=== PATIENT | female | born 1945 | race Caucasian/White ===

== ENCOUNTER 2020-05-05 11:13 | Inpatient (IN) ==
[2020-05-05] MEDS ORDERED: Oxymetazoline Nasal SPRAY BOTTLE NS STA (11:28)
[2020-05-05 11:42] LABS: Basophils % 0.6 %; Eosinophils % 0.3 %; Hematocrit 34.2 % (35.3-44.9); Hemoglobin 10.4 g/dL (11.5-15.4); Immature Granulocytes % 0.6 % (0-4); Lymphocytes # 0.9 K/mcL (0.6-4.6); Lymphocytes % 27.7 %; Mean Corpuscular HGB Conc 30.4 g/dL (31.6-35.5); Mean Corpuscular Hemoglobin 28.3 pg (28.0-33.3); Mean Corpuscular Volume 92.9 fL (83.0-100.0); Mean Platelet Volume 9.5 fL (9.4-12.4); Monocytes # 0.3 K/mcL (0.0-1.3); Monocytes % 8.3 %; Platelet Count 212 K/mcL (140-400); Red Blood Count 3.68 M/mcL (3.82-4.97); Red Cell Distribution Width 13.4 % (11.5-14.5); Segmented Neutrophils % 62.5 %; White Blood Count 3.1 K/mcL (4.3-11.1)
[2020-05-05 11:43] LABS: Neutrophils # 1.9 K/mcL (1.6-8.9)
[2020-05-05 11:48] LABS: INR 3.4; Prothrombin Time 37.9 Seconds (9.4-12.1)
[2020-05-05 11:50] LABS: Activated Partial Thrombo Time 32.2 Seconds (26.0-36.0)
[2020-05-05 11:58] LABS: Platelet Estimate Normal (Normal)
[2020-05-05 12:05] LABS: Albumin 3.3 g/dL (3.5-5.7); Albumin/Globulin Ratio 0.8 (1.1-2.2); Bilirubin,Direct 0.1 mg/dL (0.0-0.2); Bilirubin,Indirect 0.3 mg/dL (0.0-1.0); Bilirubin,Total 0.4 mg/dL (0.3-1.0); Calcium 9.6 mg/dL (8.6-10.3); Globulin 4.2 g/dL (2.4-3.5); Magnesium 1.5 mg/dL (1.6-2.6); Phosphorous 1.9 mg/dL (2.7-4.5); Potassium 3.3 mEq/L (3.5-5.1); Total Protein 7.5 g/dL (6.4-8.9); Troponin I 0.03 ng/mL (< 0.04)
[2020-05-05] MEDS ORDERED: Dexamethasone 4 MG/ML VIAL IVP ONE (12:21)
[2020-05-05] MEDS ORDERED: Azithromycin 500 MG in 0.9 % Sodium Chloride 250 ML IVPB ONE (12:21)
[2020-05-05 13:13] LABS: Adenovirus Not Detected (Not Detect); Bordetella Pertussis Not Detected (Not Detect); Chlamydophila pneumoniae Not Detected (Not Detect); Coronavirus 229E Not Detected (Not Detect); Coronavirus HKU1 Not Detected (Not Detect); Coronavirus NL63 Not Detected (Not Detect); Coronavirus OC43 Not Detected (Not Detect); Human Metapneumovirus Not Detected (Not Detect); Human Rhinovirus/Enterovirus Not Detected (Not Detect); Influenza A Subtype 2009 H1 Not Detected (Not Detect); Influenza B Not Detected (Not Detect); Mycoplasma pneumoniae Not Detected (Not Detect); Parainfluenza Virus 1 Not Detected (Not Detect); Parainfluenza Virus 2 Not Detected (Not Detect); Parainfluenza Virus 3 Not Detected (Not Detect); Parainfluenza Virus 4 Not Detected (Not Detect); Respiratory Syncytial Virus Not Detected (Not Detect)
[2020-05-05 13:16] LABS: SARS-CoV-2 DETECTED (Not Detect)
[2020-05-05] MEDS ORDERED: Naloxone 0.4 MG/ML INJ IVP PRN (15:15)
[2020-05-05] MEDS ORDERED: Mag Hydrox/Al Hydrox/Simeth 30 ML UDC PO PRN (15:15)
[2020-05-05] MEDS ORDERED: Ondansetron ODT 4 MG TAB.RAPDIS SL PRN (15:15)
[2020-05-05] MEDS ORDERED: *HR* Dextrose 50 % in Water (Vial) 50 ML VIAL IVP PRN (15:24)
[2020-05-05] MEDS ORDERED: D5% in Water 1,000 ML IVC PRN (15:24)
[2020-05-05] MEDS ORDERED: Dextrose Gel 15 GM/37.5 ML TUBE PO PRN ×2 (15:24)
[2020-05-05 16:13] LABS: ABG Base Excess 1 mEq/L (-2 to 3); ABG HCO3 28 mEq/L (21-27); ABG Oxygen Saturation 92 % (95-98); ABG PCO2 53 mmHg (35-45); ABG PH 7.33 pH Units (7.32-7.45); ABG PO2 71 mmHg (85-104); ABG TCO2 30 mEq/L (20-26)
[2020-05-05] MEDS: Ipratropium 1 PUFF INHALER IH SCH ×3 (16:52→23:52)
[2020-05-05] MEDS ORDERED: Warfarin perPT PO PRN (18:00)
[2020-05-05] MEDS: Insulin LISPRO 300 UNITS/3 ML VIAL SQ SCH ×2 (18:03→20:45)
[2020-05-05] MEDS: Azithromycin 500 MG in 0.9 % Sodium Chloride 250 ML IVPB SCH (19:07)
[2020-05-05] MEDS: cefTRIAXone 1,000 MG in Water for inj. (sterile) 10 ML IVP SCH (19:12)
[2020-05-06] MEDS: Ipratropium 1 PUFF INHALER IH SCH ×5 (03:47→20:18)
[2020-05-06] MEDS ORDERED: Melatonin 3 MG TABLET PO ONE (04:05)
[2020-05-06 09:09] LABS: Hematocrit 31.1 % (35.3-44.9); Hemoglobin 9.4 g/dL (11.5-15.4); Mean Corpuscular HGB Conc 30.2 g/dL (31.6-35.5); Mean Corpuscular Hemoglobin 28.1 pg (28.0-33.3); Mean Corpuscular Volume 93.1 fL (83.0-100.0); Mean Platelet Volume 9.7 fL (9.4-12.4); Monocytes # 0.2 K/mcL (0.0-1.3); Platelet Count 247 K/mcL (140-400); Red Blood Count 3.34 M/mcL (3.82-4.97); Red Cell Distribution Width 13.3 % (11.5-14.5); White Blood Count 2.9 K/mcL (4.3-11.1)
[2020-05-06 09:17] LABS: INR 3.3
[2020-05-06 09:30] LABS: Alanine Aminotransferase 8 Units/L (7-52); Albumin 3.1 g/dL (3.5-5.7); Albumin/Globulin Ratio 0.8 (1.1-2.2); Alkaline Phosphatase 58 Units/L (34-104); Aspartate Amino Transferase 13 Units/L (13-39); BUN/Creatinine Ratio 26 (6-26); Bilirubin,Total 0.3 mg/dL (0.3-1.0); Blood Urea Nitrogen 23 mg/dL (8-23); Calcium 9.8 mg/dL (8.6-10.3); Carbon Dioxide 28 mEq/L (23-29); Chloride 106 mEq/L (98-107); Globulin 3.9 g/dL (2.4-3.5); Glucose 155 mg/dL (70-105); Magnesium 1.8 mg/dL (1.6-2.6); Osmolality,Calculated 297 (280-300); Potassium 3.7 mEq/L (3.5-5.1); Sodium 140 mEq/L (136-145); eGFR For African Americans > 60 (> 60); eGFR For Non-African Americans > 60 (> 60)
[2020-05-06 09:51] LABS: Lymphocytes # 0.8 K/mcL (0.6-4.6); Neutrophils # 1.9 K/mcL (1.6-8.9); Platelet Estimate Normal (Normal); Reactive Lymphocytes Present (Not Present)
[2020-05-06] MEDS: Insulin LISPRO 300 UNITS/3 ML VIAL SQ SCH ×4 (10:18→21:01)
[2020-05-06] MEDS: Dexamethasone 4 MG/ML VIAL IVP SCH (10:39)
[2020-05-06] MEDS: cefTRIAXone 1,000 MG in Water for inj. (sterile) 10 ML IVP SCH (10:40)
[2020-05-06 11:21] LABS: Hematocrit 31.2 % (35.3-44.9); Hemoglobin 9.6 g/dL (11.5-15.4)
[2020-05-06] MEDS ORDERED: Potassium Phosphate 44 MEQ in 0.9 % Sodium Chloride 250 ML IVPB ONE (12:17)
[2020-05-06 12:25] LABS: ABG Base Excess 4 mEq/L (-2 to 3); ABG HCO3 30 mEq/L (21-27); ABG Oxygen Saturation 93 % (95-98); ABG PCO2 50 mmHg (35-45); ABG PH 7.39 pH Units (7.32-7.45); ABG PO2 67 mmHg (85-104); ABG TCO2 32 mEq/L (20-26)
[2020-05-06] MEDS ORDERED: Furosemide 20 MG TABLET PO PRN (13:06)
[2020-05-06] MEDS ORDERED: *HR* HYDROcodone/Acet 5/325 mg TABLET PO PRN (13:06)
[2020-05-06] MEDS ORDERED: 0.9 % Sodium Chloride 250 ML IVC SCH (13:15)
[2020-05-06] MEDS ORDERED: *HR* Metoprolol 5 MG/5 ML VIAL IVP ONE (15:20)
[2020-05-06] MEDS: Azithromycin 500 MG in 0.9 % Sodium Chloride 250 ML IVPB SCH (16:32)
[2020-05-06] MEDS: Carbidopa/Levodopa ER 50/200 TABLET PO SCH (20:20)
[2020-05-06] MEDS: Cholecalciferol (D-3) 1,000 UNIT (25MCG) TABLET PO SCH (20:20)
[2020-05-07] MEDS: Ipratropium 1 PUFF INHALER IH SCH ×7 (00:05→23:57)
[2020-05-07 07:01] LABS: INR 3.3; Prothrombin Time 36.9 Seconds (9.4-12.1)
[2020-05-07 07:02] LABS: Hematocrit 30.1 % (35.3-44.9); Mean Corpuscular HGB Conc 29.9 g/dL (31.6-35.5); Mean Corpuscular Hemoglobin 28.6 pg (28.0-33.3); Mean Corpuscular Volume 95.6 fL (83.0-100.0); Mean Platelet Volume 9.6 fL (9.4-12.4); Monocytes # 0.3 K/mcL (0.0-1.3); Platelet Count 304 K/mcL (140-400); Red Blood Count 3.15 M/mcL (3.82-4.97); Red Cell Distribution Width 13.4 % (11.5-14.5); White Blood Count 3.6 K/mcL (4.3-11.1)
[2020-05-07 07:17] LABS: Alanine Aminotransferase < 3 Units/L (7-52); Albumin 3.1 g/dL (3.5-5.7); Albumin/Globulin Ratio 0.8 (1.1-2.2); Alkaline Phosphatase 53 Units/L (34-104); Aspartate Amino Transferase 13 Units/L (13-39); BUN/Creatinine Ratio 27 (6-26); Bilirubin,Total 0.3 mg/dL (0.3-1.0); Blood Urea Nitrogen 22 mg/dL (8-23); Calcium 10.3 mg/dL (8.6-10.3); Carbon Dioxide 30 mEq/L (23-29); Chloride 107 mEq/L (98-107); Globulin 3.8 g/dL (2.4-3.5); Glucose 135 mg/dL (70-105); Osmolality,Calculated 297 (280-300); Potassium 4.2 mEq/L (3.5-5.1); Sodium 141 mEq/L (136-145); Total Protein 6.9 g/dL (6.4-8.9); eGFR For African Americans > 60 (> 60); eGFR For Non-African Americans > 60 (> 60)
[2020-05-07] MEDS: Insulin LISPRO 300 UNITS/3 ML VIAL SQ SCH ×4 (08:17→20:02)
[2020-05-07 08:34] LABS: Lymphocytes # 0.7 K/mcL (0.6-4.6); Neutrophils # 2.7 K/mcL (1.6-8.9); Platelet Estimate Normal (Normal); Reactive Lymphocytes Present (Not Present)
[2020-05-07] MEDS: Magnesium Oxide 400 MG TABLET PO SCH (08:34)
[2020-05-07] MEDS: Cholecalciferol (D-3) 1,000 UNIT (25MCG) TABLET PO SCH ×2 (08:34→20:08)
[2020-05-07] MEDS: allopurinoL 300 MG TABLET PO SCH (08:34)
[2020-05-07] MEDS: Carbidopa/Levodopa ER 50/200 TABLET PO SCH ×2 (08:34→20:08)
[2020-05-07] MEDS: Dexamethasone 4 MG/ML VIAL IVP SCH (10:24)
[2020-05-07] MEDS: cefTRIAXone 1,000 MG in Water for inj. (sterile) 10 ML IVP SCH (11:00)
[2020-05-07 12:53] LABS: Hematocrit 31.8 % (35.3-44.9); Hemoglobin 9.5 g/dL (11.5-15.4)
[2020-05-07] MEDS: Saline Nasal Spray 44 ML BOTTLE NS SCH ×2 (14:10→20:08)
[2020-05-07] MEDS ORDERED: Azithromycin 250 MG TABLET PO SCH (16:00)
[2020-05-07] MEDS ORDERED: Warfarin perPT PO PRN (18:00)
[2020-05-08] MEDS: Ipratropium 1 PUFF INHALER IH SCH ×3 (03:22→10:56)
[2020-05-08 05:32] LABS: Basophils % 0.2 %; Hemoglobin 9.4 g/dL (11.5-15.4); Immature Granulocytes % 1.1 % (0-4); Lymphocytes # 1.3 K/mcL (0.6-4.6); Lymphocytes % 24.9 %; Mean Corpuscular HGB Conc 30.3 g/dL (31.6-35.5); Mean Corpuscular Hemoglobin 28.2 pg (28.0-33.3); Mean Corpuscular Volume 93.1 fL (83.0-100.0); Mean Platelet Volume 9.5 fL (9.4-12.4); Monocytes # 0.4 K/mcL (0.0-1.3); Monocytes % 7.3 %; Neutrophils # 3.5 K/mcL (1.6-8.9); Platelet Count 354 K/mcL (140-400); Red Blood Count 3.33 M/mcL (3.82-4.97); Red Cell Distribution Width 13.4 % (11.5-14.5); Segmented Neutrophils % 66.5 %; White Blood Count 5.2 K/mcL (4.3-11.1)
[2020-05-08 05:38] LABS: INR 3.1; Prothrombin Time 34.8 Seconds (9.4-12.1)
[2020-05-08 05:53] LABS: Alanine Aminotransferase < 3 Units/L (7-52); Albumin 3.1 g/dL (3.5-5.7); Albumin/Globulin Ratio 0.8 (1.1-2.2); Alkaline Phosphatase 55 Units/L (34-104); Aspartate Amino Transferase 13 Units/L (13-39); BUN/Creatinine Ratio 29 (6-26); Bilirubin,Total 0.4 mg/dL (0.3-1.0); Blood Urea Nitrogen 24 mg/dL (8-23); Calcium 10.2 mg/dL (8.6-10.3); Carbon Dioxide 31 mEq/L (23-29); Chloride 105 mEq/L (98-107); Glucose 127 mg/dL (70-105); Osmolality,Calculated 296 (280-300); Potassium 3.9 mEq/L (3.5-5.1); Sodium 140 mEq/L (136-145); Total Protein 7.1 g/dL (6.4-8.9); eGFR For African Americans > 60 (> 60); eGFR For Non-African Americans > 60 (> 60)
[2020-05-08 07:03] LABS: Platelet Estimate Normal (Normal)
[2020-05-08] MEDS: Insulin LISPRO 300 UNITS/3 ML VIAL SQ SCH ×2 (09:04→12:43)
[2020-05-08] MEDS: Carbidopa/Levodopa ER 50/200 TABLET PO SCH (09:12)
[2020-05-08] MEDS: Magnesium Oxide 400 MG TABLET PO SCH (09:13)
[2020-05-08] MEDS: Cholecalciferol (D-3) 1,000 UNIT (25MCG) TABLET PO SCH (09:13)
[2020-05-08] MEDS: Dexamethasone 4 MG/ML VIAL IVP SCH (09:14)
[2020-05-08] MEDS: allopurinoL 300 MG TABLET PO SCH (09:14)
[2020-05-08] MEDS: cefTRIAXone 1,000 MG in Water for inj. (sterile) 10 ML IVP SCH (09:15)
[2020-05-08] MEDS: Saline Nasal Spray 44 ML BOTTLE NS SCH (11:08)
[2020-05-08 12:12] VITALS: BP 181/92
== END 2020-05-08 14:20 | disposition home or self-care (01) | DRG 177 ==
LOC: EMEROOARM 11:13 → 2NENU 11:13 → SUATTDRO 16:00 → 2NENU 17:06
PROVIDERS: ADMIT Family Medicine; ATTEND Family Medicine

== ENCOUNTER 2021-06-26 22:19 | Inpatient (IN) ==
[2021-06-26] MEDS ORDERED: 0.9 % Sodium Chloride 1,000 ML IVC ONE (22:49)
[2021-06-27 00:52] LABS: Influenza A PCR Negative (Negative); Influenza B PCR Negative (Negative); Resp. Syncytial Virus PCR Negative (Negative)
[2021-06-27 00:53] LABS: SARS-CoV-2 by PCR (In House) Negative (Negative)
[2021-06-27] MEDS ORDERED: DilTIAZem 50 MG/50 ML IV.SOLN IVC SCH (01:00)
[2021-06-27 01:03] LABS: Basophils % 0.2 %; Hematocrit 38.2 % (35.3-44.9); Hemoglobin 11.5 g/dL (11.5-15.4); Immature Granulocytes % 0.6 % (0-4); Lymphocytes # 0.4 K/mcL (0.6-4.6); Lymphocytes % 2.3 %; Mean Corpuscular HGB Conc 30.1 g/dL (31.6-35.5); Mean Corpuscular Hemoglobin 28.2 pg (28.0-33.3); Mean Corpuscular Volume 93.6 fL (83.0-100.0); Mean Platelet Volume 9.9 fL (9.4-12.4); Monocytes # 0.6 K/mcL (0.0-1.3); Monocytes % 3.8 %; Platelet Count 210 K/mcL (140-400); Red Blood Count 4.08 M/mcL (3.82-4.97); Red Cell Distribution Width 16.9 % (11.5-14.5); Segmented Neutrophils % 93.1 %
[2021-06-27 01:13] LABS: INR 1.7; Prothrombin Time 18.8 Seconds (9.4-12.1)
[2021-06-27 01:38] LABS: Calcium 10.5 mg/dL (8.6-10.3); Potassium 3.9 mEq/L (3.5-5.1); Troponin I 0.06 ng/mL (< 0.04)
[2021-06-27] MEDS ORDERED: Isovue-370 500 ML BOTTLE IVP ONE (01:41)
[2021-06-27] MEDS ORDERED: Aspirin 325 MG TABLET PO ONE (01:41)
[2021-06-27] MEDS ORDERED: Azithromycin 500 MG in 0.9 % Sodium Chloride 250 ML IVPB ONE (01:48)
[2021-06-27] MEDS ORDERED: cefTRIAXone 1,000 MG in 0.9 % Sodium Chloride Mini Bag 100 ML IVPB ONE (01:48)
[2021-06-27] MEDS ORDERED: *HR* LORazepam 2 MG/ML VIAL IVP ONE (02:45)
[2021-06-27] MEDS ORDERED: Furosemide 20 MG/2 ML VIAL IVP ONE (04:12)
[2021-06-27] MEDS ORDERED: Melatonin 3 MG TABLET PO PRN (04:24)
[2021-06-27] MEDS ORDERED: Naloxone 0.4 MG/ML INJ IVP PRN (04:24)
[2021-06-27] MEDS ORDERED: *HR* Heparin 5,000 UNIT/ML VIAL IVP PRN ×2 (04:31)
[2021-06-27] MEDS ORDERED: Perflutren Lipid Microsphere 1.3 ML in 0.9 % Sodium Chloride 8.7 ML IVP PRN (04:34)
[2021-06-27] MEDS ORDERED: Amiodarone Premix 360 MG/200 ML BAG IVC ONE (06:20)
[2021-06-27] MEDS ORDERED: Amiodarone Premix 150 MG/100 ML BAG IVPB ONE (06:20)
[2021-06-27] MEDS: Heparin 25,000UNIT/250ML 1/2NS 25,000 UNIT/250 ML IV.SOLN IVC SCH ×2 (06:25→19:10)
[2021-06-27 07:01] LABS: Bacteria,Urine Few per hpf (None-Few); Bilirubin,Urine Negative (Negative); Blood,Urine Small (Negative); Clarity,Urine Clear (Clear); Color,Urine Light-Yellow (Yellow); Glucose,Urine (UA) 150 mg/dL (Normal); Ketones,Urine Negative (Negative); Leukocyte Esterase,Urine Negative (Negative); Nitrite,Urine Negative (Negative); Protein,Urine >=300 mg/dL (Neg-Trace); RBC,Urine 15-30 per hpf (0-3); Specific Gravity,Urine > 1.030 (1.010-1.025); Squamous Epithelial Cell,Urine Few per hpf (None-Few); Urobilinogen,Urine Normal (Normal)
[2021-06-27 09:45] LABS: Thyroid Stimulating Hormone 1.533 mcIU/mL (0.340-5.600)
[2021-06-27] MEDS: Doxycycline 100 MG in 0.9 % Sodium Chloride Mini Bag 100 ML IVPB SCH ×2 (11:35→23:06)
[2021-06-27] MEDS: Amiodarone Premix 360 MG/200 ML BAG IVC SCH (12:56)
[2021-06-27] MEDS ORDERED: *HR* HYDROcodone/Acet 5/325 mg TABLET PO PRN (13:12)
[2021-06-27] MEDS: PrednisoLONE Acetate 1% Opth 5 ML BOTTLE RIGHT EYE SCH (23:05)
[2021-06-27] MEDS: Cholecalciferol (D-3) 1,000 UNIT (25MCG) TABLET PO SCH (23:06)
[2021-06-28] MEDS: Amiodarone Premix 360 MG/200 ML BAG IVC SCH (01:22)
[2021-06-28] MEDS: Carbidopa/Levodopa ER 50/200 TABLET PO SCH ×3 (01:22→21:11)
[2021-06-28] MEDS ORDERED: Acetaminophen 325 MG TABLET PO PRN (03:51)
[2021-06-28] MEDS: cefTRIAXone 1,000 MG in 0.9 % Sodium Chloride Mini Bag 100 ML IVPB SCH (04:47)
[2021-06-28 05:24] LABS: Hematocrit 30.4 % (35.3-44.9); Mean Corpuscular HGB Conc 30.6 g/dL (31.6-35.5); Mean Corpuscular Hemoglobin 28.6 pg (28.0-33.3); Mean Corpuscular Volume 93.5 fL (83.0-100.0); Mean Platelet Volume 10.6 fL (9.4-12.4); Platelet Count 170 K/mcL (140-400); Red Blood Count 3.25 M/mcL (3.82-4.97); Red Cell Distribution Width 17.2 % (11.5-14.5); White Blood Count 13.2 K/mcL (4.3-11.1)
[2021-06-28 05:28] LABS: Hemoglobin 9.3 g/dL (11.5-15.4)
[2021-06-28 05:36] LABS: INR 1.9; Prothrombin Time 21.3 Seconds (9.4-12.1)
[2021-06-28 05:43] LABS: Magnesium 1.6 mg/dL (1.6-2.6); Phosphorous 2.6 mg/dL (2.7-4.5); Potassium 3.8 mEq/L (3.5-5.1)
[2021-06-28] MEDS ORDERED: Potassium Phosphate 44 MEQ in 0.9 % Sodium Chloride 250 ML IVPB ONE (07:41)
[2021-06-28] MEDS ORDERED: *HR* Amiodarone 200 MG TABLET PO SCH ×2 (09:00→10:15)
[2021-06-28] MEDS ORDERED: Aspirin 81 MG TAB.CHEW PO SCH (09:00)
[2021-06-28] MEDS: Heparin 25,000UNIT/250ML 1/2NS 25,000 UNIT/250 ML IV.SOLN IVC SCH (09:14)
[2021-06-28] MEDS: allopurinoL 300 MG TABLET PO SCH (09:19)
[2021-06-28] MEDS: Cholecalciferol (D-3) 1,000 UNIT (25MCG) TABLET PO SCH ×2 (09:19→21:11)
[2021-06-28] MEDS: Aspirin Enteric Coated 81 MG Tablet PO SCH (09:19)
[2021-06-28] MEDS: Doxycycline 100 MG in 0.9 % Sodium Chloride Mini Bag 100 ML IVPB SCH ×2 (09:29→21:11)
[2021-06-28] MEDS: PrednisoLONE Acetate 1% Opth 5 ML BOTTLE RIGHT EYE SCH ×4 (09:31→21:11)
[2021-06-28] MEDS ORDERED: *HR* Warfarin 3 MG TABLET PO ONE (18:00)
[2021-06-28] MEDS ORDERED: Warfarin perPT PO PRN (18:00)
[2021-06-29 04:28] LABS: Basophils % 0.1 %; Eosinophils # 0.1 K/mcL (0.0-0.6); Eosinophils % 0.9 %; Hematocrit 28.7 % (35.3-44.9); Hemoglobin 8.7 g/dL (11.5-15.4); Immature Granulocytes % 1.2 % (0-4); Lymphocytes # 0.9 K/mcL (0.6-4.6); Lymphocytes % 8.5 %; Mean Corpuscular HGB Conc 30.3 g/dL (31.6-35.5); Mean Corpuscular Hemoglobin 28.9 pg (28.0-33.3); Mean Corpuscular Volume 95.3 fL (83.0-100.0); Monocytes # 0.5 K/mcL (0.0-1.3); Monocytes % 5.1 %; Neutrophils # 8.6 K/mcL (1.6-8.9); Platelet Count 163 K/mcL (140-400); Red Blood Count 3.01 M/mcL (3.82-4.97); Red Cell Distribution Width 17.2 % (11.5-14.5); Segmented Neutrophils % 84.2 %; White Blood Count 10.2 K/mcL (4.3-11.1)
[2021-06-29 04:34] LABS: INR 1.6; Prothrombin Time 17.7 Seconds (9.4-12.1)
[2021-06-29 04:45] LABS: Calcium 9.3 mg/dL (8.6-10.3); Magnesium 1.8 mg/dL (1.6-2.6); Potassium 3.8 mEq/L (3.5-5.1)
[2021-06-29] MEDS: cefTRIAXone 1,000 MG in 0.9 % Sodium Chloride Mini Bag 100 ML IVPB SCH (05:55)
[2021-06-29] MEDS: Doxycycline 100 MG in 0.9 % Sodium Chloride Mini Bag 100 ML IVPB SCH ×2 (07:37→19:31)
[2021-06-29] MEDS: allopurinoL 300 MG TABLET PO SCH (07:39)
[2021-06-29] MEDS: Cholecalciferol (D-3) 1,000 UNIT (25MCG) TABLET PO SCH ×2 (07:39→19:30)
[2021-06-29] MEDS: Aspirin Enteric Coated 81 MG Tablet PO SCH (07:39)
[2021-06-29] MEDS: PrednisoLONE Acetate 1% Opth 5 ML BOTTLE RIGHT EYE SCH ×4 (07:39→19:30)
[2021-06-29] MEDS: Carbidopa/Levodopa ER 50/200 TABLET PO SCH ×2 (07:39→19:31)
[2021-06-29] MEDS: *HR* Amiodarone 200 MG TABLET PO SCH (07:39)
[2021-06-29] MEDS: Heparin 25,000UNIT/250ML 1/2NS 25,000 UNIT/250 ML IV.SOLN IVC SCH (17:06)
[2021-06-30 04:50] LABS: Basophils % 0.3 %; Eosinophils # 0.1 K/mcL (0.0-0.6); Eosinophils % 1.9 %; Hematocrit 28.9 % (35.3-44.9); Hemoglobin 8.7 g/dL (11.5-15.4); Immature Granulocytes % 0.7 % (0-4); Lymphocytes # 1.1 K/mcL (0.6-4.6); Lymphocytes % 15.3 %; Mean Corpuscular HGB Conc 30.1 g/dL (31.6-35.5); Mean Corpuscular Hemoglobin 28.6 pg (28.0-33.3); Mean Corpuscular Volume 95.1 fL (83.0-100.0); Mean Platelet Volume 10.6 fL (9.4-12.4); Monocytes # 0.4 K/mcL (0.0-1.3); Monocytes % 6.1 %; Neutrophils # 5.2 K/mcL (1.6-8.9); Nucleated Red Blood Cells 0.3 /100 WBC (0); Platelet Count 180 K/mcL (140-400); Red Blood Count 3.04 M/mcL (3.82-4.97); Red Cell Distribution Width 16.7 % (11.5-14.5); Segmented Neutrophils % 75.7 %; White Blood Count 6.9 K/mcL (4.3-11.1)
[2021-06-30 04:54] LABS: Calcium 9.7 mg/dL (8.6-10.3); Magnesium 1.7 mg/dL (1.6-2.6); Potassium 4.1 mEq/L (3.5-5.1)
[2021-06-30] MEDS: cefTRIAXone 1,000 MG in 0.9 % Sodium Chloride Mini Bag 100 ML IVPB SCH (05:10)
[2021-06-30 05:16] LABS: INR 1.2; Prothrombin Time 13.5 Seconds (9.4-12.1)
[2021-06-30] MEDS: Heparin 25,000UNIT/250ML 1/2NS 25,000 UNIT/250 ML IV.SOLN IVC SCH ×2 (07:32→22:37)
[2021-06-30] MEDS: Doxycycline 100 MG in 0.9 % Sodium Chloride Mini Bag 100 ML IVPB SCH ×2 (07:40→22:00)
[2021-06-30] MEDS: Aspirin Enteric Coated 81 MG Tablet PO SCH (07:41)
[2021-06-30] MEDS: Cholecalciferol (D-3) 1,000 UNIT (25MCG) TABLET PO SCH ×2 (07:43→22:01)
[2021-06-30] MEDS: Carbidopa/Levodopa ER 50/200 TABLET PO SCH ×2 (07:43→22:01)
[2021-06-30] MEDS: allopurinoL 300 MG TABLET PO SCH (07:43)
[2021-06-30] MEDS: *HR* Amiodarone 200 MG TABLET PO SCH (07:43)
[2021-06-30] MEDS: PrednisoLONE Acetate 1% Opth 5 ML BOTTLE RIGHT EYE SCH ×4 (07:58→22:02)
[2021-06-30] MEDS ORDERED: *HR* Warfarin 3 MG TABLET PO ONE (18:00)
[2021-06-30] MEDS ORDERED: Warfarin perPT PO PRN (18:00)
[2021-07-01] MEDS: cefTRIAXone 1,000 MG in 0.9 % Sodium Chloride Mini Bag 100 ML IVPB SCH (04:50)
[2021-07-01 05:25] LABS: Basophils % 0.6 %; Eosinophils # 0.2 K/mcL (0.0-0.6); Eosinophils % 3.1 %; Hematocrit 30.2 % (35.3-44.9); Hemoglobin 8.9 g/dL (11.5-15.4); Immature Granulocytes % 1.3 % (0-4); Lymphocytes # 1.1 K/mcL (0.6-4.6); Lymphocytes % 18.1 %; Mean Corpuscular HGB Conc 29.5 g/dL (31.6-35.5); Mean Corpuscular Hemoglobin 28.3 pg (28.0-33.3); Mean Corpuscular Volume 96.2 fL (83.0-100.0); Mean Platelet Volume 10.1 fL (9.4-12.4); Monocytes # 0.5 K/mcL (0.0-1.3); Monocytes % 8.7 %; Neutrophils # 4.2 K/mcL (1.6-8.9); Platelet Count 197 K/mcL (140-400); Red Blood Count 3.14 M/mcL (3.82-4.97); Red Cell Distribution Width 16.6 % (11.5-14.5); Segmented Neutrophils % 68.2 %; White Blood Count 6.2 K/mcL (4.3-11.1)
[2021-07-01 05:33] LABS: INR 1.2; Prothrombin Time 13.2 Seconds (9.4-12.1)
[2021-07-01 05:47] LABS: BUN/Creatinine Ratio 20 (6-26); Blood Urea Nitrogen 20 mg/dL (8-23); Calcium 10.4 mg/dL (8.6-10.3); Carbon Dioxide 31 mEq/L (23-29); Chloride 105 mEq/L (98-107); Glucose 110 mg/dL (70-105); Magnesium 1.6 mg/dL (1.6-2.6); Osmolality,Calculated 289 (280-300); Phosphorous 2.6 mg/dL (2.7-4.5); Sodium 138 mEq/L (136-145); eGFR For African Americans > 60 (> 60); eGFR For Non-African Americans 53 (> 60)
[2021-07-01] MEDS: Aspirin Enteric Coated 81 MG Tablet PO SCH (09:58)
[2021-07-01] MEDS: *HR* Amiodarone 200 MG TABLET PO SCH (09:59)
[2021-07-01] MEDS: Carbidopa/Levodopa ER 50/200 TABLET PO SCH ×2 (10:00→20:53)
[2021-07-01] MEDS: allopurinoL 300 MG TABLET PO SCH (10:01)
[2021-07-01] MEDS: Doxycycline 100 MG in 0.9 % Sodium Chloride Mini Bag 100 ML IVPB SCH (10:02)
[2021-07-01] MEDS: Cholecalciferol (D-3) 1,000 UNIT (25MCG) TABLET PO SCH (10:03)
[2021-07-01] MEDS: PrednisoLONE Acetate 1% Opth 5 ML BOTTLE RIGHT EYE SCH ×4 (10:04→20:53)
[2021-07-01] MEDS: Heparin 25,000UNIT/250ML 1/2NS 25,000 UNIT/250 ML IV.SOLN IVC SCH ×2 (14:13→22:52)
[2021-07-01] MEDS: Amoxicillin 500 MG CAPSULE PO SCH ×2 (14:57→20:52)
[2021-07-01] MEDS ORDERED: *HR* Warfarin 4 MG TABLET PO ONE (18:00)
[2021-07-02 06:18] LABS: Eosinophils % 2.6 %
[2021-07-02 06:19] LABS: Basophils % 0.6 %; Eosinophils # 0.2 K/mcL (0.0-0.6); Hematocrit 30.8 % (35.3-44.9); Hemoglobin 9.2 g/dL (11.5-15.4); Immature Granulocytes % 2.1 % (0-4); Lymphocytes # 1.1 K/mcL (0.6-4.6); Lymphocytes % 16.4 %; Mean Corpuscular HGB Conc 29.9 g/dL (31.6-35.5); Mean Corpuscular Hemoglobin 29.2 pg (28.0-33.3); Mean Corpuscular Volume 97.8 fL (83.0-100.0); Mean Platelet Volume 9.9 fL (9.4-12.4); Monocytes # 0.4 K/mcL (0.0-1.3); Monocytes % 6.2 %; Platelet Count 243 K/mcL (140-400); Red Blood Count 3.15 M/mcL (3.82-4.97); Red Cell Distribution Width 16.1 % (11.5-14.5); Segmented Neutrophils % 72.1 %; White Blood Count 6.6 K/mcL (4.3-11.1)
[2021-07-02 06:20] LABS: INR 1.2; Prothrombin Time 13.8 Seconds (9.4-12.1)
[2021-07-02 06:23] LABS: Neutrophils # 4.8 K/mcL (1.6-8.9)
[2021-07-02 06:54] LABS: BUN/Creatinine Ratio 16 (6-26); Blood Urea Nitrogen 16 mg/dL (8-23); Calcium 10.8 mg/dL (8.6-10.3); Carbon Dioxide 31 mEq/L (23-29); Chloride 107 mEq/L (98-107); Glucose 111 mg/dL (70-105); Magnesium 1.5 mg/dL (1.6-2.6); Osmolality,Calculated 294 (280-300); Potassium 4.3 mEq/L (3.5-5.1); Sodium 141 mEq/L (136-145); eGFR For African Americans > 60 (> 60); eGFR For Non-African Americans 56 (> 60)
[2021-07-02] MEDS: *HR* Amiodarone 200 MG TABLET PO SCH (07:23)
[2021-07-02] MEDS: Aspirin Enteric Coated 81 MG Tablet PO SCH (07:23)
[2021-07-02] MEDS: allopurinoL 300 MG TABLET PO SCH (07:23)
[2021-07-02] MEDS: Amoxicillin 500 MG CAPSULE PO SCH ×3 (07:23→20:38)
[2021-07-02] MEDS: Cholecalciferol (D-3) 1,000 UNIT (25MCG) TABLET PO SCH (07:23)
[2021-07-02] MEDS: Carbidopa/Levodopa ER 50/200 TABLET PO SCH ×2 (07:23→20:37)
[2021-07-02] MEDS: PrednisoLONE Acetate 1% Opth 5 ML BOTTLE RIGHT EYE SCH ×4 (07:29→20:38)
[2021-07-02] MEDS: *HR* Enoxaparin 150 MG/ML SYRINGE SQ SCH ×2 (11:44→22:51)
[2021-07-02 15:04] LABS: Adenovirus Not Detected (Not Detect); Bordetella Pertussis Not Detected (Not Detect); Chlamydophila pneumoniae Not Detected (Not Detect); Coronavirus 229E Not Detected (Not Detect); Coronavirus HKU1 Not Detected (Not Detect); Coronavirus NL63 Not Detected (Not Detect); Coronavirus OC43 Not Detected (Not Detect); Human Metapneumovirus Not Detected (Not Detect); Human Rhinovirus/Enterovirus Not Detected (Not Detect); Influenza A Subtype 2009 H1 Not Detected (Not Detect); Influenza B Not Detected (Not Detect); Mycoplasma pneumoniae Not Detected (Not Detect); Parainfluenza Virus 1 Not Detected (Not Detect); Parainfluenza Virus 2 Not Detected (Not Detect); Parainfluenza Virus 3 Not Detected (Not Detect); Parainfluenza Virus 4 Not Detected (Not Detect); Respiratory Syncytial Virus Not Detected (Not Detect); SARS-CoV-2 Not Detected (Not Detect)
[2021-07-02] MEDS ORDERED: *HR* Warfarin 4 MG TABLET PO ONE (18:00)
[2021-07-03 06:59] LABS: INR 1.8; Prothrombin Time 19.8 Seconds (9.4-12.1)
[2021-07-03] MEDS: Aspirin Enteric Coated 81 MG Tablet PO SCH (09:22)
[2021-07-03] MEDS: *HR* Amiodarone 200 MG TABLET PO SCH (09:23)
[2021-07-03] MEDS: Amoxicillin 500 MG CAPSULE PO SCH (09:23)
[2021-07-03] MEDS: allopurinoL 300 MG TABLET PO SCH (09:23)
[2021-07-03] MEDS: Carbidopa/Levodopa ER 50/200 TABLET PO SCH (09:23)
[2021-07-03] MEDS: Cholecalciferol (D-3) 1,000 UNIT (25MCG) TABLET PO SCH (09:23)
[2021-07-03] MEDS: PrednisoLONE Acetate 1% Opth 5 ML BOTTLE RIGHT EYE SCH ×3 (09:24→17:25)
[2021-07-03] MEDS: *HR* Enoxaparin 150 MG/ML SYRINGE SQ SCH (10:22)
[2021-07-03 14:47] VITALS: BP 137/81; PULSE 81; TEMP 98.6; O2SAT 98
[2021-07-03] MEDS ORDERED: *HR* Warfarin 2 MG TABLET PO ONE (18:00)
== END 2021-07-03 18:20 | disposition other institution (70) | DRG 871 ==
LOC: CDU 22:19 → EMEROOARM 22:19 → SUATTDRO 06-27 04:45 → 2NNU 06-27 19:49 → 3ANU 06-30 01:16
PROVIDERS: ADMIT Internal Medicine; ATTEND Pharmacist